=== PATIENT | female | born 1960 | race African-American/Black ===

== ENCOUNTER 2022-11-28 13:13 | Emergency (ER) | payer OTHER ==
[~2022-11-28] VITALS: Ht 172.7 cm; Wt 85.7 kg
[2022-11-28] MEDS ORDERED: SILVER SULFADIAZINE 1% CREAM 50 GM TP ONE ×2 (13:35→13:45)
[2022-11-28] MEDS ORDERED: TDAP DIPH,PERTUSS,TET VAC/PF 0.5 ML DISP.SYRIN IM ONE ×2 (13:45→13:48)
[2022-11-28] MEDS ORDERED: HYDR-3980 PO (14:06)
[2022-11-28 14:28] VITALS: BP 145/70; TEMP 98.2; O2SAT 98
== END 2022-11-28 14:29 | disposition home or self-care (01) ==
LOC: ER 13:14
DX: T21.21XA Burn of second degree of chest wall, initial encounter (principal); Z79.899 Other long term (current) drug therapy; X12.XXXA Contact with other hot fluids, initial encounter; Y93.89 Activity, other specified; Y92.89 Other specified places as the place of occurrence of the external cause; Y99.8 Other external cause status
CPT/HCPCS: 16020; 90715; A4606; A4663